=== PATIENT | female | born 1990 | race Hispanic/Latino ===

== ENCOUNTER 2017-08-31 22:28 | Emergency (ER) | payer SELFPAY ==
[2017-08-31 23:13] LABS: #Basophils 0.1 thou/uL (0.0-0.2); #Eosinphils 0.2 thou/uL (0.0-0.7); #Lymphocytes 4.4 thou/uL (1.20-3.40); #Monocytes 0.5 thou/uL (0.11-0.59); #Neutrophils 5.1 thou/uL (1.40-6.50); %Basophils 1.1 % (0.0-1.0); %Eosinophils 2.4 % (0.0-10.0); %Lymphocytes 42.3 % (21.0-51.0); %Monocytes 4.6 % (0.0-10.0); Hematocrit 38.9 % (36.0-47.0); Mean Platelet Volume 6.7 fL (7.4-10.4); Red Blood Cell (RBC) Count 4.81 mill/uL (4.20-5.40); White Blood Cell (WBC) Count 10.3 thou/uL (4.8-10.8)
--- NOTE | 2017-08-31 23:26 | RAD ---
RADIOGRAPH CHEST 2 VIEWS: HISTORY: 27-year-old female with chest pain. FINDINGS: There is no air space density, pulmonary edema, pleural effusion, pneumothorax, or cardiomegaly. IMPRESSION: No acute cardiopulmonary findings. ced POS: [facility]
[2017-08-31 23:36] LABS: ALT (SGPT) 26 U/L (8-55); AST (SGOT) 15 U/L (5-34); Alkaline Phosphatase 98 U/L (40-150); Anion Gap 13 mmol/L (10-20); BUN (Urea Nitrogen) 9 mg/dL (7.0-18.7); Bilirubin, Total 0.3 mg/dL (0.2-1.2); Calc. Creatinine Clearance 0 mL/min (70-130); Calcium 9.4 mg/dL (7.8-10.44); Carbon Dioxide 25 mmol/L (22-29); Chloride 102 mmol/L (98-107); Estimated GFR-MDRD Greater than 90; Globulin 3.3 g/dL (2.4-3.5); Lipase 16 U/L (8-78); Protein, Total 7.1 g/dL (6.0-8.3)
[2017-08-31 23:39] LABS: Troponin I Less than 0.010 ng/mL (< 0.028)
[2017-09-01 00:31] LABS: Bilirubin Negative (Negative); Blood, Urine Moderate (Negative); Glucose, Urine (Dipstick) 500 mg/dL (Negative); Ketone, Urine 15 mg/dL (Negative); Nitrite Negative (Negative); Protein, Urine (Dipstick) Negative (Neg-Trace)
[2017-09-01 00:33] LABS: Bacteria/HPF 2+ HPF (None Seen); Hyaline Casts/LPF 4-6 HYALINE CAST LPF (0-3 Hyaline)
[2017-09-01] MEDS ORDERED: Ketorolac Tromethamine 30 MG/ML VIAL ONE (02:33)
--- NOTE | 2017-09-27 20:53 | EKG ---
Test Reason : Blood Pressure : / mmHG Vent. Rate : 105 BPM Atrial Rate : 105 BPM P-R Int : 132 ms QRS Dur : 072 ms QT Int : 338 ms P-R-T Axes : -20 027 011 degrees QTc Int : 446 ms Sinus tachycardia Otherwise normal ECG Confirmed by JIGNA MATUTE, ESTEFANI ([id number]), metropolitan editor COLETTE OLVERA ([id number]) on 09/27/2017 8:52:22 PM Referred By: Confirmed By:ESTEFANI BENITO MD
== END 2017-09-01 03:30 | disposition home or self-care (01) ==
LOC: ERS 22:28
DX: R07.89 Other chest pain (principal)
CPT/HCPCS: 36415; 71020; 80053; 81003; 81015; 82553; 83690; 84484; 84703; 85025; 85379; 93005; 96361; 96374; J1885